=== PATIENT | female | born 1980 | race Caucasian/White ===

== ENCOUNTER 2021-01-24 11:50 | Emergency (ER) | payer MEDICAID, SELFPAY ==
[~2021-01-24] VITALS: Ht 165.1 cm; Wt 66.9 kg
[2021-01-24 11:54] VITALS: BP 104/74
[2021-01-24] MEDS ORDERED: IBUPROFEN 600 MG TABLET ONE (12:13)
[2021-01-24] MEDS ORDERED: ACETAMINOPHEN 325 MG TABLET ONE (12:13)
[2021-01-24] MEDS ORDERED: ACETAMINOPHEN 325 MG TABLET PO ONE (12:30)
[2021-01-24] MEDS ORDERED: IBUPROFEN 600 MG TABLET PO ONE (12:30)
--- NOTE | 2021-01-24 13:03 | NUR ---
PT IN BED WITH NO SIGNS OR SYMPTOMS OF ACUTE DSITRESS NOTED RESPIRAITONS EVEN AND UNLABORED. DC INSTRUCTIONS GIVEN, PT WAITING FOR THUMB SPICA TO DC. PT VERBALIZES UNDERSTANDING AND AGREEMENT WITH PLAN OF CARE
== END 2021-01-24 13:55 | disposition home or self-care (01) ==
LOC: ED 13:50
DX: S63.642A Sprain of metacarpophalangeal joint of left thumb, initial encounter (principal); W18.39XA Other fall on same level, initial encounter; Y93.89 Activity, other specified; Y92.098 Other place in other non-institutional residence as the place of occurrence of the external cause; Y99.8 Other external cause status
CPT/HCPCS: 29125; 99283